=== PATIENT | female | born 1995 | race African-American/Black ===

== ENCOUNTER 2020-09-27 09:41 | Emergency (ER) | payer OTHER, BC ==
[2020-09-27 09:45] VITALS: BP 120/72; PULSE 101; TEMP 98.4; BMI 23.8
[2020-09-27] MEDS ORDERED: IBUPROFEN 400 MG TABLET (FP) PO ONE (10:38)
[2020-09-27] MEDS ORDERED: METHOCARBAMOL 500 MG TABLET PO ONE (10:38)
== END 2020-09-27 10:45 | disposition home or self-care (01) ==
LOC: JERFT 09:41
DX: M62.830 Muscle spasm of back (principal)
CPT/HCPCS: 99283-25